=== PATIENT | male | born 1955 | race Caucasian/White ===

== ENCOUNTER 2016-08-16 06:03 | Day surgery (SDC) | payer OTHER ==
[2016-08-15 11:21] VITALS: BMI 29.7
--- NOTE | 2016-08-15 17:22 | PREOPHP ---
DATE OF ADMISSION: 08/16/2016 HISTORY OF PRESENT ILLNESS: This 61-year-old patient is admitted for elective cataract surgery of t he left eye. The patient has had decreased vision in both eyes for the past year and 3 months ago u nderwent cataract surgery of the right eye with good visual result. The patient's systemic history is positive for zji-kntryhe-fpqkavgbh diabetes mellitus, systemic hypertension and hypercholesterole leonila. CURRENT MEDICATIONS INCLUDE: 1. Metformin. 2. Atenolol. 3. Glipizide. 4. Hydrochlorothiazide. 5. Simvastatin. 6. Lisinopril. 7. Aspirin. ALLERGIES: THERE ARE NO KNOWN ALLERGIES. PHYSICAL EXAMINATION: Visual acuity with best correction is 20/25 in the right eye and 20/70 in the left eye. There is a posterior chamber intraocular lens in the right eye. The left eye has advanc ed nuclear sclerosis and posterior subcapsular cataract changes. Applanation tonometry is 20 mmHg. Examination of the retina appears within normal limits. DIAGNOSIS: Cataract, left eye. PLAN: Cataract extraction with lens implant, left eye. The risks and alternatives to the surgery h ave been discussed with the patient and the patient has opted to proceed with surgery. Dictated By: SHIRLEY MAGALLON/MICHELLE Conf#: [id number] DID#: [id number]
[~2016-08-16] VITALS: Ht 160 cm; Wt 74.0 kg
[2016-08-16] VITALS (9 sets, daily range): BP systolic 108–178; BP diastolic 66–83; PULSE 72–76; RESP 14–20; Ht 160 cm; Wt 74.0 kg
[~2016-08-16 06:03] MED LIST: AMLO-145 PO; ATEN100T PO; GLIP-95 PO; HYD25 PO; LISI40TA9 PO; METF500T4 PO; SIMV5TAB50 PO
[2016-08-16] MEDS ORDERED: CYCLOPENTOLATE/PHENYLEPH 2 ML OPH OPER SCH (06:30)
[2016-08-16] MEDS ORDERED: TROPICAMIDE 1% 2 ML OPH OPER SCH (06:30)
[2016-08-16] MEDS ORDERED: DICLOFENAC 0.1% 2.5 ML OPH OPER SCH (06:30)
[2016-08-16] MEDS ORDERED: CIPROFLOXACIN 0.3% 2.5 ML OPH OPER SCH (06:30)
[2016-08-16] MEDS ORDERED: LIDOCAINE 4% (MPF) 5 ML INJ ONE (07:02)
[2016-08-16] MEDS ORDERED: CEFAZOLIN 1 GM INJ ONE (07:03)
[2016-08-16] MEDS ORDERED: MOXIFLOXACIN 0.5% 3 ML OPH ONE ×2 (07:03→08:55)
[2016-08-16] MEDS ORDERED: TETRACAINE 0.5% 15 ML OPH ONE (07:03)
[2016-08-16] MEDS ORDERED: CARBACHOL 0.01% 1.5 ML OPH INJ ONE (07:03)
[2016-08-16] MEDS ORDERED: DEXAMETHASONE 4 MG/ML 1 ML INJ ONE (07:03)
[2016-08-16] MEDS ORDERED: HYALURONATE/CHONDROITIN 1ML OPH INJ ONE (07:03)
[2016-08-16] MEDS ORDERED: GENTAMICIN 80 MG INJ ONE (07:04)
[2016-08-16] MEDS ORDERED: EPINEPHrine 1 MG INJ ONE (07:04)
[2016-08-16] MEDS ORDERED: PROPOFOL 20 ML ONE (09:00)
[2016-08-16] MEDS ORDERED: LABETALOL HCL 20MG INJ IV PRN (09:30)
[2016-08-16] MEDS ORDERED: HYDROmorphONE (0.2 MG/ML) 10ML SYG IV PRN ×3 (09:30)
[2016-08-16] MEDS ORDERED: MEPERIDINE 25 MG INJ IV PRN (09:30)
[2016-08-16] MEDS ORDERED: ONDANSETRON 4 MG INJ IV PRN (09:30)
[2016-08-16] MEDS ORDERED: hydrALAzine 20 MG INJ IV PRN (09:30)
[2016-08-16] MEDS ORDERED: FENTAnyl 50 MCG/ML VIAL IV PRN ×2 (09:30)
[2016-08-16] MEDS ORDERED: CEFAZOLIN 1 GM INJ INJ ONE (10:27)
--- NOTE | 2016-08-16 14:14 | OPR ---
DATE OF OPERATION: 08/16/2016 PREOPERATIVE DIAGNOSIS: Cataract, left eye. POSTOPERATIVE DIAGNOSIS: Cataract, left eye. OPERATION PERFORMED: Cataract extraction with lens implant, left eye. SURGEON: Shirley Moses MD. ANESTHESIA: Dr. Irwin. DESCRIPTION OF PROCEDURE: The patient was brought to the operating room and placed on the table wit h an IV in place and the patient attached to an ross furnace operator. Oxygen was given via face mask. After some intravenous sedation was administered, local anesthesia was given using Xylocaine 2% with epinephrine, mixed with Marcaine 0.5%. This was given in a lid block and retrobulbar injection. The patient was then prepped and draped in the usual sterile manner. A wire lid speculum was inserted between the lids of the left eye. A Superblade was used to enter th e anterior chamber at the corneoscleral limbus at the 10:30 o'clock position. A separate incision wa s made using a 3.0-mm keratome which entered the corneoscleral junction at the 12 o'clock position. Through this 3-mm opening, an irrigating cystotome was introduced into the anterior chamber. The emilia mber was filled with Viscoat and an anterior capsulotomy was performed. Balanced salt solution was t hen used for hydrodissection of the lens. A phacoemulsification handpiece was then brought into the field and introduced into the anterior chamber. The lens nucleus was emulsified using a deep groove and cracking the nucleus into quadrants. Following this, each quadrant was aspirated and emulsified at the pupillary margin. After this was completed, the irrigation/aspiration handpiece was brought to the field, introduced i nto the posterior chamber, and the lens cortical material was removed. When this was completed, rome tional Viscoat was injected into the anterior and posterior chambers. The 3-mm opening had its internal lips enlarged, and then the posterior chamber intraocular lens [place] suring 21.0 diopters (Bausch and Lomb model LI61AO) was then injected into the posterior chamber usi ng the lens injector system. After the leading haptic was introduced into the capsular bag and the l ens optic was present in the center of the eye, the injector was removed and the trailing haptic was grasped with non-toothed forceps and introduced into the capsular fold superiorly. A Sinskey hook w as then used to rotate the intraocular lens so that the lips were oriented in the horizontal meridia n. One 10-0 nylon suture was placed across the wound. Prior to tying, the irrigation/aspiration handpiece was reintroduced into the anterior chamber to re move the Viscoat. Miochol was instilled to constrict the pupil, and then the 10-0 nylon suture was t ied. The ends were cut short and then the knot was buried. Then, 0.5 mL of dexamethasone and 0.5 mL of Ancef were injected into the sub-Tenon space in the infe rior fornix. Ciloxan drops were then placed on the surface of the eye. The speculum was removed and a patch was applied. The patient then left the operating room in satisfactory condition. Dictated By: SHIRLEY MAGALLON/MICHELLE Conf#: [id number] DID#: [id number]
== END 2016-08-16 10:47 | disposition home or self-care (01) ==
LOC: SDS 06:03
PROVIDERS: ATTEND Ophthalmology
DX: H25.12 Age-related nuclear cataract, left eye (principal); I10 Essential (primary) hypertension; E11.9 Type 2 diabetes mellitus without complications; E78.5 Hyperlipidemia, unspecified
CPT/HCPCS: 66984; 82962; J0171; J0690; J1100; J1580; V2632; Z7512; Z7610

== ENCOUNTER 2017-10-02 05:56 | Day surgery (SDC) | END 2017-10-02 16:04 | disposition home or self-care (01) ==